=== PATIENT | male | born 1990 | race Caucasian/White ===

== ENCOUNTER 2020-07-30 16:11 | Outpatient (CLI) | payer OTHER | END 2020-07-30 16:12 | disposition home or self-care (01) | LOC: SCSRAD 16:11 | PROVIDERS: ATTEND Family Medicine | DX: M54.2 Cervicalgia (principal); M85.50 Aneurysmal bone cyst, unspecified site; Z87.820 Personal history of traumatic brain injury | CPT/HCPCS: 72040 ==

== ENCOUNTER 2021-08-12 13:46 | Outpatient (CLI) | payer BC | END 2021-08-12 13:47 | disposition home or self-care (01) | LOC: BICMRI 13:46 | PROVIDERS: ATTEND Orthopaedic Surgery | DX: M25.562 Pain in left knee (principal); M51.16 Intervertebral disc disorders with radiculopathy, lumbar region; S83.231A Complex tear of medial meniscus, current injury, right knee, initial encounter | CPT/HCPCS: 72148 ==

== ENCOUNTER 2025-01-14 14:24 | Outpatient (CLI) | payer BC | END 2025-01-14 14:25 | disposition home or self-care (01) | LOC: SCSRAD 14:24 | PROVIDERS: ATTEND Family Medicine | DX: M51.360 Other intervertebral disc degeneration, lumbar region with discogenic back pain only (principal); M51.370 Other intervertebral disc degeneration, lumbosacral region with discogenic back pain only; M51.86 Other intervertebral disc disorders, lumbar region; M51.87 Other intervertebral disc disorders, lumbosacral region; M47.816 Spondylosis without myelopathy or radiculopathy, lumbar region; M47.817 Spondylosis without myelopathy or radiculopathy, lumbosacral region; M48.061 Spinal stenosis, lumbar region without neurogenic claudication; M48.07 Spinal stenosis, lumbosacral region | CPT/HCPCS: 72100; 72220 ==